=== PATIENT | female | born 1960 | race Caucasian/White ===

== ENCOUNTER 2017-09-21 14:48 | Outpatient (CLI) | payer BC ==
--- NOTE | 2017-09-21 18:35 | MRI ---
MRI LUMBAR SPINE NONCONTRAST: MRI THORACIC SPINE NONCONTRAST: HISTORY: Back pain. Leg weakness. FINDINGS: The conus medullaris has a normal appearance. At the partially visualized T9-T10 level, a posterior disk bulge is present with moderate stenosis of the central canal due to circumferential degenerative changes. T11-T12: Disk space narrowing. Large posterior disk herniation with superior extension. Flattening of the ventral aspect of the thecal sac and spinal cord by approximately 20%. No abnormal signal wi thin the cord. Moderate right and severe left foraminal stenosis. T11-T12, T12-L1, L1-L2: Osteophytosis. Central canal and neural foramen are patent. L2-L3: Disk space narrowing. Disk bulge and circumferential degenerative changes. Mild stenosis of the central canal. Moderate right and mild left foraminal stenosis. L3-L4: Osteophytosis. Central canal and neural foramen are patent. L4-L5: Osteophytosis. Central canal and neural foramen are patent. L5-S1: Central canal and neural foramen are patent. IMPRESSION: 1. Large posterior disk herniation with significant thecal sac and moderate spinal cord compression at the T10-T11 level. No evidence of myelomalacia. 2. Otherwise mild to moderate degenerative changes of the lumbar spine with central canal and forami nal stenoses, most pronounced at the L2-L3 level. POS: TAYLOR
== END 2017-09-21 14:49 | disposition home or self-care (01) ==
LOC: MRI 14:48
PROVIDERS: ATTEND Neurological Surgery
DX: M47.26 Other spondylosis with radiculopathy, lumbar region (principal); M48.061 Spinal stenosis, lumbar region without neurogenic claudication; M99.83 Other biomechanical lesions of lumbar region; M51.24 Other intervertebral disc displacement, thoracic region; G95.20 Unspecified cord compression
CPT/HCPCS: 72148

== ENCOUNTER 2017-10-07 15:30 | Outpatient (CLI) | payer BC ==
--- NOTE | 2017-10-07 16:52 | MRI ---
MR OF THORACIC SPINE WITHOUT CONTRAST: 10/07/17 INDICATION: Mid back pain with bilateral leg weakness. TECHNIQUE: Multiplanar and multisequence MR images were obtained of the thoracic spine without IV contrast. Comparisons are made with the thoracic spinal radiograph dated 10/31/15. FINDINGS: There is some mild increased T2 signal seen within the vertebral bodies of T6 through T10. There is s ome prominent fatty signal seen along the adjacent end plates at T6-T7 through T10-T11. There are mul tilevel disc bulges at these levels. Overall, the findings are suspicious for changes of Modic end pl ate degenerative change. No definite acute fracture is evident. At C7-T1, there is no appreciable central canal or neural foraminal narrowing. At T1-T2, there is no appreciable central canal or neural foraminal narrowing. At T2-T3, there is no appreciable central canal or neural foraminal narrowing. At T3-T4, there is no appreciable central canal or neural foraminal narrowing. At T4-T5, there is a small left paracentral protrusion but without appreciable central canal or neura l foraminal narrowing. At T5-T6, there is a small right paracentral protrusion without appreciable central canal or neural f oraminal narrowing. At T6-T7, there is a mild broad based disc bulge without appreciable cord contact. There is some mild effacement of the ventral subarachnoid space. At T7-T8, there is a mild broad based bulge causing mild effacement of ventral subarachnoid space wit hout definite cord compression. At T8-T9, there is a broad based disc bulge causing some mild ventral contact of the spinal cord with out definite cord flattening. At T9-T10, there is a mild broad based disc bulge without definite cord flattening. At T10-T11, there is a prominent left paracentral extrusion causing mild effacement of the ventral sp inal cord. The cephalad extrusion of disc material from this level measures approximately [address] craniocaudal dimensions. At T11-T12, there is no appreciable central canal or neural foraminal narrowing. At T12-L1, there is no appreciable central canal or neural foraminal narrowing. IMPRESSION: 1. Left paracentral cephalad extending disc extrusion at T10-T11 causing mild ventral effacement of the spinal cord without definite signal abnormality. 2. Multilevel spondylosis of the lumbar spine most pronounced at T6-T7 through T10-T11. 3. Prominent Modic end plate degenerative changes at T6-T7 through T10-T11. POS: TAYLOR
== END 2017-10-07 15:31 | disposition home or self-care (01) ==
LOC: TBSIIMAG 15:30
PROVIDERS: ATTEND Neurological Surgery
DX: M51.24 Other intervertebral disc displacement, thoracic region (principal); M47.894 Other spondylosis, thoracic region
CPT/HCPCS: 72146

== ENCOUNTER 2018-11-02 12:04 | Outpatient (CLI) | payer BC ==
--- NOTE | 2018-11-02 14:11 | MRI ---
MRI OF THE LUMBAR SPINE: DATE: 11/02/2018. COMPARISON: 09/22/2017. HISTORY: Lumbar radiculopathy. TECHNIQUE: Multiplanar multisequence MR imaging of the lumbar spine obtained without contrast. FINDINGS: The sagittal STIR imaging demonstrates no focal area of marrow edema within the lumbar spine to sugge st the presence of a lumbar spine fracture. There is partially visualized increased T2 signal within the superior aspect of the T11 vertebral body, new when compared to 10/07/2017 examination. Thi s could potentially represent edema on the basis of superior endplate fracture or could represent edema on the basis of degenerative change. On the basis of 5 lumbar-type vertebral bodies, the conus medullaris terminates at the L1-2 level. T12-L1: Mild bilateral facet hypertrophy. No significant central canal or neural foraminal stenosis. L1-2: There is disc desiccation and minimal disc bulge. There is mild bilateral facet hypertrophy. No significant central canal or neural foraminal stenosis. L2-3: There is disc space narrowing, disc desiccation, anterior osteophyte formation, degenerative en dplate change, and disc bulge, similar when compared to the prior examination. There is bilateral facet hypertrophy and hypertrophy of ligamentum flavum. There is moderate neural foraminal stenosis o n the right, similar when compared to the prior examination. No significant left neural foraminal stenosis there is mild slightly worsened central canal stenosis. L3-4: Mild bilateral facet hypertrophy. Intervertebral disc height and signal intensity within normal limits with no significant central canal or neural foraminal stenosis L4-5: Intervertebral disc height and signal intensity within normal limits. Mild bilateral facet hype rtrophy and hypertrophy of ligamentum flavum. No significant neural foraminal stenosis or central canal stenosis. L5-S1: Intervertebral disc height and signal intensity within normal limits with no significant centr al canal or neural foraminal stenosis. There is diverticulosis of the sigmoid colon and distal descending colon. Imaged retroperitoneal stru ctures demonstrate no acute findings. Multilevel degenerative change within the lumbar spine as detailed above, most prominent at L2-3. IMPRESSION: Increased T2/STIR signal noted within the superior aspect of the T11 vertebral body, only partially i hussein on this examination. This could be related to degenerative endplate change at T10-11 or superior endplate fracture of T11. Unfortunately, T10 is not visualized on this examination and the s uperior aspect of the T11 vertebral body is also not visualized on this study. Multilevel stable mild central canal stenosis. Transcribed Date/Time: 11/02/2018 3:40 PM
== END 2018-11-02 12:05 | disposition home or self-care (01) ==
LOC: SCSMRI 12:04
PROVIDERS: ATTEND Anesthesiology Pain Medicine
DX: M54.16 Radiculopathy, lumbar region (principal); M48.061 Spinal stenosis, lumbar region without neurogenic claudication
CPT/HCPCS: 72148

== ENCOUNTER 2019-09-11 09:30 | Outpatient (CLI) | payer BC ==
--- NOTE | 2019-09-11 17:38 | MRI ---
MRI RIGHT SHOULDER: Date: 09-11-2019 Provided Clinical History: Rotator cuff tear FINDINGS: There is a full thickness, full width retracted tear of the supraspinatus and infraspinatus tendons w ith retraction to the level of the acromioclavicular joint. There is associated edema within the infr aspinatus muscle suggesting an acute component. The components of the rotator cuff appear otherwise i ntact. Intact fibers of the long-head biceps tendon are not identified. There is a mild glenohumeral joint effusion. The glenoid labrum and glenohumeral articular cartilage appear unremarkable other than an ill-defined appearance to the region of the superior labrum at the biceps anchor region presumably on the basis of an acute disruption. Acromioclavicular joint osteoarthrosis is noted without significant mass effect upon the subjacent christian praspinatus. Rotator cuff muscular volume appears preserved. No focal concerning regional marrow or m uscular signal abnormality apparent. IMPRESSION: 1. Full thickness, full width retracted tearing of the supraspinatus and infraspinatus tendons with a ssociated muscular edema within the infraspinatus suggesting an acute component to the tear. 2. Disruption of the long-head biceps tendon at the biceps anchor with associated irregularity of the superior labrum. 3. Moderate glenohumeral joint effusion. POS: BRIAN
== END 2019-09-11 09:31 | disposition home or self-care (01) ==
LOC: SCSMRI 09:30
PROVIDERS: ATTEND Orthopaedic Surgery
DX: S46.011A Strain of muscle(s) and tendon(s) of the rotator cuff of right shoulder, initial encounter (principal); M75.121 Complete rotator cuff tear or rupture of right shoulder, not specified as traumatic; M25.411 Effusion, right shoulder

== ENCOUNTER 2021-01-30 11:01 | Outpatient (CLI) | payer BC ==
[2021-01-30 13:50] LABS: #Basophils 0.1 10x3/uL (0.0-0.2); #Eosinphils 0.3 10x3/uL (0.0-0.5); #Monocytes 0.7 10x3/uL (0.0-1.1); #Neutrophils 5.8 10x3/uL (1.5-8.4); %Basophils 1.4 % (0.0-2.0); %Eosinophils 2.8 % (0.0-6.0); %Lymphocytes 21.7 % (18.0-47.0); %Monocytes 7.8 % (0.0-10.0); %Neutrophils 65.7 % (40.0-75.0); Hemoglobin 13.8 g/dL (12.0-15.5); Mean Corpuscular HGB CONC 32.2 g/dL (32.0-36.0); Mean Corpuscular Hemoglobin 30.7 pg (27.0-33.0); Mean Corpuscular Volume 95.3 fl (81.6-98.3); Mean Platelet Volume 10.2 fl (7.4-10.4); Platelet Count 351 10x3/uL (150-450); White Blood Cell (WBC) Count 8.9 10x3/uL (3.5-10.5)
[2021-01-30 14:12] LABS: Anion Gap 13 mmol/L (10-20); BUN (Urea Nitrogen) 9 mg/dL (9.8-20.1); Calc. Creatinine Clearance 0 mL/min (70-130); Carbon Dioxide 29 mmol/L (22-29); Chloride 99 mmol/L (98-107); Glucose 98 mg/dL (70-105); Potassium 4.4 mmol/L (3.5-5.1); Sodium 137 mmol/L (136-145)
[2021-01-30 22:43] LABS: SARS-CoV-2 PCR by NAA Not Detected (NotDetected)
== END 2021-01-30 11:02 | disposition home or self-care (01) ==
LOC: LABBT 11:01
PROVIDERS: ATTEND Orthopaedic Surgery
DX: Z01.818 Encounter for other preprocedural examination (principal); Z20.822 Contact with and (suspected) exposure to COVID-19
CPT/HCPCS: 80048; 85025; 93005; 93010; U0003; U0005

== ENCOUNTER 2021-02-04 05:51 | Observation (INO) | payer BC ==
[2021-01-29 11:28] VITALS: BMI 37.6
[2021-02-04] MEDS ORDERED: Tranexamic Acid 1,000 MG/10 ML VIAL ONE (06:08)
[2021-02-04] MEDS ORDERED: Levofloxacin 500 mg/D5W 100 ml Premix Bag ONE (06:08)
[2021-02-04] MEDS ORDERED: Sodium Chloride 0.9% 100 ML ONE (06:08)
[2021-02-04] MEDS ORDERED: Vancomycin 1.5 GRAM/300 ML BAG 1.5 GM in Premix Bag 1 BAG IVPB SCH (06:15)
[2021-02-04] MEDS ORDERED: Midazolam HCl 2 mg/2 ml Vial ONE ×2 (06:39→06:40)
[2021-02-04] MEDS ORDERED: Fentanyl 100 MCG/2 ML VIAL ONE ×5 (06:40→09:48)
[2021-02-04] MEDS ORDERED: HYDROcodone/Acetaminophen 10/325 mg Tablet PO PRN ×2 (07:01)
[2021-02-04] MEDS ORDERED: Albuterol Sulfate 1.25 MG/3 ML NEB NEB PRN (07:04)
[2021-02-04] MEDS ORDERED: Diazepam 5 MG TAB PO PRN (07:04)
[2021-02-04] MEDS ORDERED: Non-Formulary Item 1 EACH (Albuterol Sulfate [Proair Hfa] 108 Hfa.Aer.Ad) INH PRN (07:04)
[2021-02-04] MEDS ORDERED: predniSONE 5 MG TAB PO PRN (07:04)
[2021-02-04] MEDS ORDERED: Bupivacaine PF 0.5% 30 ML VIAL ONE (07:12)
[2021-02-04] MEDS ORDERED: Vancomycin HCl 1.5 GM in Sodium Chloride 0.9% 250 ML 300 ML IVPB SCH (07:15)
[2021-02-04] MEDS ORDERED: Dexamethasone 20 MG/5 ML VIAL ONE (07:22)
[2021-02-04] MEDS ORDERED: Ketorolac Tromethamine 30 MG/ML VIAL ONE (07:22)
[2021-02-04] MEDS ORDERED: Rocuronium Bromide 10 MG/ML (10ML VIAL) ONE (07:22)
[2021-02-04] MEDS ORDERED: ePHEDrine 50 MG/ML VIAL ONE (07:22)
[2021-02-04] MEDS ORDERED: Lidocaine 1% PF 5 ML VIAL ONE (07:22)
[2021-02-04] MEDS ORDERED: PROPOFOL 200 MG/20 ML VIAL ONE (07:22)
[2021-02-04] MEDS ORDERED: Ondansetron PF 4 MG/2 ML Vial ONE (07:22)
[2021-02-04] MEDS ORDERED: Glycopyrrolate 0.2 MG/ML 5 ML SYRINGE ONE (07:22)
[2021-02-04] MEDS ORDERED: Phenylephrine 10 MG/ML VIAL ONE (07:22)
[2021-02-04] MEDS ORDERED: Albuterol Sulfate HFA (OR ONLY) INH PRN (07:54)
[2021-02-04] MEDS ORDERED: Meperidine HCl/PF 25 MG/ML VIAL SLOW IVP PRN (08:20)
[2021-02-04] MEDS ORDERED: Promethazine HCl 25 MG/ML VIAL IM PRN ×2 (08:20)
[2021-02-04] MEDS ORDERED: Naloxone HCl 0.4 mg/ml Vial IV PRN (08:20)
[2021-02-04] MEDS ORDERED: Zolpidem Tartrate 5 MG TAB PO PRN (08:20)
[2021-02-04] MEDS ORDERED: HYDROmorphone 2 MG/ML VIAL SLOW IVP PRN (08:20)
[2021-02-04] MEDS ORDERED: diphenhydrAMINE 25 MG CAP PO PRN (08:20)
[2021-02-04] MEDS ORDERED: fentaNYL Citrate/PF 2,000 MCG in Sodium Chloride 0.9% 60 ML IV PRN (08:20)
[2021-02-04] MEDS ORDERED: diphenhydrAMINE 50 MG/ML VIAL IM PRN (08:20)
[2021-02-04] MEDS ORDERED: Ondansetron PF 4 MG/2 ML Vial IVP PRN (08:20)
[2021-02-04] MEDS ORDERED: Promethazine HCl 25 MG/ML VIAL IVPB PRN (08:20)
[2021-02-04] MEDS ORDERED: diphenhydrAMINE 50 MG/ML VIAL IVP PRN (08:20)
[2021-02-04] MEDS ORDERED: PCA Communication Order-Pharmacy FS SCH (08:30)
[2021-02-04] MEDS ORDERED: SUGAMMADEX SODIUM 200 MG/2 ML VIAL ONE (08:31)
[2021-02-04] MEDS ORDERED: DOXYCYCLINE HYCLATE 20 MG PO SCH (09:00)
[2021-02-04] MEDS ORDERED: PREGABALIN PO SCH (09:00)
[2021-02-04] MEDS ORDERED: DOXYCYCLINE HYCLATE PO SCH (09:00)
[2021-02-04] MEDS ORDERED: LEFLUNOMIDE PO SCH (09:00)
[2021-02-04] MEDS ORDERED: Bisoprolol Fumarate/HCTZ 10 mg/6.25 mg Tablet PO SCH (09:00)
[2021-02-04] MEDS ORDERED: Non-Formulary Item 1 EACH (Fluticasone/Salmeterol [Advair Diskus 250/50] 1 EACH Blst.W.De INH SCH (09:00)
[2021-02-04] MEDS ORDERED: HYDROmorphone 0.5 MG/0.5 ML SYRINGE ONE (09:48)
[2021-02-04] MEDS: Leflunomide 10 mg Tablet PO SCH (11:49)
[2021-02-04] MEDS: Bisoprolol Fumarate/HCTZ 10 mg/6.25 mg Tablet PO SCH (11:49)
[2021-02-04] MEDS: Pregabalin 75 MG CAP PO SCH ×2 (11:49→20:53)
[2021-02-04] MEDS: Folic Acid 1 MG TAB PO SCH ×2 (11:49→20:53)
[2021-02-04] MEDS: Aspirin 325 MG TAB PO SCH ×2 (11:49→20:53)
[2021-02-04] MEDS: Hydroxychloroquine Sulfate 200 MG TAB PO SCH (11:49)
[2021-02-04] MEDS: DULoxetine 30 MG CAP PO SCH ×2 (11:49→20:54)
[2021-02-04] MEDS: sulfaSALAzine 500 MG TAB PO SCH ×2 (11:50→20:54)
[2021-02-04] MEDS: Ketorolac Tromethamine 30 MG/ML VIAL IVP SCH ×3 (12:22→23:50)
[2021-02-04] MEDS: Sodium Chloride 0.9% 1,000 ML IV SCH ×2 (12:22→20:54)
[2021-02-04] MEDS: Albuterol Sulfate 1.25 MG/3 ML NEB NEB PRN (15:55)
[2021-02-04] MEDS: Mometasone 200 MCG/Formoterol 5 MCG 120 PUFF INHALER INH SCH (18:53)
[2021-02-05] MEDS: Sodium Chloride 0.9% 1,000 ML IV SCH ×3 (03:45→21:49)
[2021-02-05] MEDS: Ketorolac Tromethamine 30 MG/ML VIAL IVP SCH ×2 (05:17→11:42)
[2021-02-05] MEDS ORDERED: Vancomycin HCl 1.5 GM in Sodium Chloride 0.9% 250 ML 300 ML IVPB SCH (06:00)
[2021-02-05] MEDS: Mometasone 200 MCG/Formoterol 5 MCG 120 PUFF INHALER INH SCH ×2 (07:29→18:47)
[2021-02-05] MEDS: Leflunomide 10 mg Tablet PO SCH (09:07)
[2021-02-05] MEDS: DULoxetine 30 MG CAP PO SCH ×2 (09:08→20:39)
[2021-02-05] MEDS: sulfaSALAzine 500 MG TAB PO SCH ×2 (09:08→20:40)
[2021-02-05] MEDS: Pregabalin 75 MG CAP PO SCH ×2 (09:08→20:39)
[2021-02-05] MEDS: Bisoprolol Fumarate/HCTZ 10 mg/6.25 mg Tablet PO SCH (09:09)
[2021-02-05] MEDS: Folic Acid 1 MG TAB PO SCH ×2 (09:09→20:39)
[2021-02-05] MEDS: Aspirin 325 MG TAB PO SCH ×2 (09:09→20:39)
[2021-02-05] MEDS ORDERED: Albuterol 200 PUFF (6.7GM INHALER) INH PRN (09:48)
[2021-02-05] MEDS: Albuterol Sulfate 1.25 MG/3 ML NEB NEB PRN (10:44)
[2021-02-05] MEDS: Hydroxychloroquine Sulfate 200 MG TAB PO SCH (18:53)
[2021-02-06] MEDS: Aspirin 325 MG TAB PO SCH (08:01)
[2021-02-06] MEDS: Pregabalin 75 MG CAP PO SCH (08:01)
[2021-02-06] MEDS: Hydroxychloroquine Sulfate 200 MG TAB PO SCH (08:02)
[2021-02-06] MEDS: Bisoprolol Fumarate/HCTZ 10 mg/6.25 mg Tablet PO SCH (08:02)
[2021-02-06] MEDS: DULoxetine 30 MG CAP PO SCH (08:02)
[2021-02-06] MEDS: Leflunomide 10 mg Tablet PO SCH (08:02)
[2021-02-06] MEDS: sulfaSALAzine 500 MG TAB PO SCH (08:02)
[2021-02-06] MEDS: Folic Acid 1 MG TAB PO SCH (08:02)
[2021-02-06 08:06] VITALS: BP 126/83; TEMP 98.5
[2021-02-06] MEDS: Mometasone 200 MCG/Formoterol 5 MCG 120 PUFF INHALER INH SCH (08:23)
[2021-02-06] MEDS ORDERED: HYDROcodone/Acetaminophen 10/325 mg Tablet PO PRN (10:01)
== END 2021-02-06 10:25 | disposition home or self-care (01) ==
LOC: SDC 05:51 → SURG A 07:01
PROVIDERS: ADMIT Orthopaedic Surgery; ATTEND Orthopaedic Surgery
PROC: 0RRJ00Z Replacement of Right Shoulder Joint with Reverse Ball and Socket Synthetic Substitute, Open Approach (ICD-10-PCS; principal; 2021-02-04)
DX: M75.101 Unspecified rotator cuff tear or rupture of right shoulder, not specified as traumatic (principal); M06.9 Rheumatoid arthritis, unspecified; I10 Essential (primary) hypertension; D68.61 Antiphospholipid syndrome; F17.200 Nicotine dependence, unspecified, uncomplicated; Z86.15 Personal history of latent tuberculosis infection; Z79.2 Long term (current) use of antibiotics; Z79.82 Long term (current) use of aspirin; Z79.899 Other long term (current) drug therapy; Z88.0 Allergy status to penicillin; Z88.8 Allergy status to other drugs, medicaments and biological substances; Z88.7 Allergy status to serum and vaccine; Z98.890 Other specified postprocedural states
CPT/HCPCS: 94640; 96374; 96375; 96376; C1713; C1776; C1889; G0378; J1100; J1170; J1885; J1956; J2250; J2370; J2405; J2704; J3010; J3370; J3490; J7050; J7620; S0020

== ENCOUNTER 2021-02-07 03:33 | Observation (INO) | payer BC ==
[2021-02-07] MEDS ORDERED: Ondansetron ODT 8 MG TAB ONE (04:18)
[2021-02-07] MEDS ORDERED: Morphine 4 MG/ML VIAL ONE ×2 (04:18→15:54)
[2021-02-07 05:57] LABS: #Basophils 0.1 thou/uL (0.0-0.2); #Eosinphils 0.1 thou/uL (0.0-0.7); #Lymphocytes 1.2 thou/uL (1.20-3.40); #Monocytes 0.8 thou/uL (0.11-0.59); #Neutrophils 7.3 thou/uL (1.40-6.50); %Basophils 0.7 % (0.0-1.0); %Eosinophils 0.7 % (0.0-10.0); %Lymphocytes 12.3 % (21.0-51.0); %Monocytes 8.9 % (0.0-10.0); %Neutrophils 77.4 % (42.0-75.0); Hemoglobin 12.6 g/dL (12.0-16.0); Mean Corpuscular HGB CONC 34.3 g/dL (32.0-36.0); Mean Corpuscular Hemoglobin 33.5 pg (27.0-31.0); Mean Corpuscular Volume 97.6 fL (78.0-98.0); Mean Platelet Volume 6.9 fL (7.4-10.4); Platelet Count 282 thou/uL (130-400); RBC Distribution Width 12.6 % (11.5-14.5); Red Blood Cell (RBC) Count 3.76 mill/uL (4.20-5.40); White Blood Cell (WBC) Count 9.4 thou/uL (4.8-10.8)
[2021-02-07 06:18] LABS: ALT (SGPT) 9 U/L (8-55); AST (SGOT) 25 U/L (5-34); Albumin 3.4 g/dL (3.5-5.0); Alkaline Phosphatase 68 U/L (40-110); Anion Gap 9 mmol/L (10-20); BUN (Urea Nitrogen) 7 mg/dL (9.8-20.1); Bilirubin, Total 0.4 mg/dL (0.2-1.2); Calc. Creatinine Clearance 0 mL/min (70-130); Carbon Dioxide 30 mmol/L (22-29); Chloride 102 mmol/L (98-107); Globulin 2.4 g/dL (2.4-3.5); Glucose 111 mg/dL (70-105); Potassium 3.4 mmol/L (3.5-5.1); Protein, Total 5.8 g/dL (6.0-8.3); Sodium 138 mmol/L (136-145)
[2021-02-07] MEDS ORDERED: Aspirin 325 MG TAB ONE (06:38)
[2021-02-07 06:41] LABS: CKMB 5.7 ng/mL (0-6.6)
[2021-02-07 09:02] LABS: Troponin I 0.165 ng/mL (< 0.028)
[2021-02-07] MEDS ORDERED: Iopamidol-370 76% 500 ML 1 ML ONE (11:17)
[2021-02-07 11:43] LABS: SARS-CoV-2 NAA Rapid Test Not Detected (NotDetected)
[2021-02-07 12:08] LABS: Troponin I 0.148 ng/mL (< 0.028)
[2021-02-07] MEDS ORDERED: Nitroglycerin 0.4 MG TAB (25 Tab Bottle) SL PRN (12:26)
[2021-02-07] MEDS ORDERED: Albuterol Sulfate 1.25 MG/3 ML NEB NEB PRN (12:34)
[2021-02-07] MEDS ORDERED: Diazepam 5 MG TAB PO PRN (12:34)
[2021-02-07] MEDS ORDERED: Acetaminophen 325 MG TAB PO PRN (12:41)
[2021-02-07] MEDS ORDERED: Electrolyte Replacement Protocol 1 EACH FS SCH (12:45)
[2021-02-07] MEDS ORDERED: Potassium Chloride 20 MEQ TAB PO SCH (13:15)
[2021-02-07] MEDS ORDERED: Electrolyte Replacement Protocol FS PRN (13:15)
[2021-02-07] MEDS ORDERED: Enoxaparin Sodium 80 MG/0.8 ML SYRINGE SC SCH (13:15)
[2021-02-07 14:02] LABS: Cardiac Risk 3.5 (Less than 4.5)
[2021-02-07] MEDS ORDERED: Enoxaparin Sodium 80 MG/0.8 ML SYRINGE ONE (15:56)
[2021-02-07] MEDS ORDERED: Potassium Chloride 20 MEQ TAB ONE (15:56)
[2021-02-07] MEDS ORDERED: Ondansetron ODT 4 MG TAB ONE (15:56)
[2021-02-07] MEDS: Morphine 4 MG/ML VIAL SLOW IVP PRN (16:42)
[2021-02-07] MEDS: Ondansetron ODT 4 MG TAB PO PRN (16:45)
[2021-02-07 18:53] VITALS: BMI 40.3
[2021-02-07] MEDS: Mometasone 200 MCG/Formoterol 5 MCG 120 PUFF INHALER INH SCH (19:00)
[2021-02-07 19:47] LABS: Troponin I 0.141 ng/mL (< 0.028)
[2021-02-07] MEDS: sulfaSALAzine 500 MG TAB PO SCH (20:26)
[2021-02-07] MEDS: Enoxaparin Sodium 80 MG/0.8 ML SYRINGE SC SCH (20:26)
[2021-02-07] MEDS: Aspirin 325 MG TAB PO SCH (20:26)
[2021-02-07] MEDS: Pregabalin 75 MG CAP PO SCH (20:27)
[2021-02-07] MEDS: Folic Acid 1 MG TAB PO SCH (20:27)
[2021-02-07] MEDS: DULoxetine 30 MG CAP PO SCH (20:27)
[2021-02-07] MEDS: Nicotine 14 MG PATCH TD SCH (20:31)
[2021-02-07] MEDS ORDERED: DOXYCYCLINE HYCLATE 20 MG PO SCH (21:00)
[2021-02-08 05:19] LABS: #Eosinphils 0.1 thou/uL (0.0-0.7); #Lymphocytes 1.5 thou/uL (1.20-3.40); #Monocytes 0.9 thou/uL (0.11-0.59); #Neutrophils 5.5 thou/uL (1.40-6.50); %Basophils 0.5 % (0.0-1.0); %Eosinophils 1.7 % (0.0-10.0); %Monocytes 11.1 % (0.0-10.0); %Neutrophils 67.8 % (42.0-75.0); Hemoglobin 12.1 g/dL (12.0-16.0); Mean Corpuscular Hemoglobin 31.5 pg (27.0-31.0); Mean Corpuscular Volume 98.6 fL (78.0-98.0); Mean Platelet Volume 7.1 fL (7.4-10.4); Platelet Count 279 thou/uL (130-400); RBC Distribution Width 12.5 % (11.5-14.5); Red Blood Cell (RBC) Count 3.83 mill/uL (4.20-5.40); White Blood Cell (WBC) Count 8.1 thou/uL (4.8-10.8)
[2021-02-08 05:21] LABS: Anion Gap 14 mmol/L (10-20); BUN (Urea Nitrogen) 4 mg/dL (9.8-20.1); Calc. Creatinine Clearance 156 mL/min (70-130); Calcium 8.8 mg/dL (7.8-10.44); Carbon Dioxide 26 mmol/L (22-29); Chloride 102 mmol/L (98-107); Glucose 80 mg/dL (70-105); Magnesium 1.9 mg/dL (1.6-2.6); Potassium 3.7 mmol/L (3.5-5.1); Sodium 138 mmol/L (136-145)
[2021-02-08] MEDS ORDERED: Magnesium 2 GM/50 ML 2 GM in Premix Bag 1 BAG IVPB SCH (06:00)
[2021-02-08] MEDS: Morphine 4 MG/ML VIAL SLOW IVP PRN ×2 (07:11→14:38)
[2021-02-08] MEDS: Ondansetron ODT 4 MG TAB PO PRN ×2 (07:12→17:04)
[2021-02-08] MEDS: Mometasone 200 MCG/Formoterol 5 MCG 120 PUFF INHALER INH SCH ×2 (09:31→23:57)
[2021-02-08] MEDS: Folic Acid 1 MG TAB PO SCH ×2 (10:36→22:03)
[2021-02-08] MEDS: Pregabalin 75 MG CAP PO SCH ×2 (10:36→22:04)
[2021-02-08] MEDS: sulfaSALAzine 500 MG TAB PO SCH ×2 (10:37→22:05)
[2021-02-08] MEDS: DULoxetine 30 MG CAP PO SCH ×2 (10:37→22:03)
[2021-02-08] MEDS: Hydroxychloroquine Sulfate 200 MG TAB PO SCH (10:37)
[2021-02-08] MEDS: Bisoprolol Fumarate/HCTZ 10 mg/6.25 mg Tablet PO SCH (10:37)
[2021-02-08] MEDS: Leflunomide 10 mg Tablet PO SCH (10:38)
[2021-02-08] MEDS: Enoxaparin Sodium 80 MG/0.8 ML SYRINGE SC SCH (10:39)
[2021-02-08] MEDS: Aspirin 325 MG TAB PO SCH ×2 (10:41→22:03)
[2021-02-08] MEDS: HYDROcodone/Acetaminophen 10/325 mg Tablet PO PRN ×2 (17:04→22:04)
[2021-02-08] MEDS: Nicotine 14 MG PATCH TD SCH (17:07)
[2021-02-08] MEDS ORDERED: Promethazine HCl 25 MG in Sodium Chloride 0.9% 50 ML IVPB PRN (18:29)
[2021-02-08] MEDS ORDERED: Promethazine HCl 25 MG/ML VIAL IM PRN (21:53)
[2021-02-09 05:20] LABS: Hemoglobin 12.2 g/dL (12.0-16.0); Mean Corpuscular HGB CONC 32.4 g/dL (32.0-36.0); Mean Corpuscular Hemoglobin 32.3 pg (27.0-31.0); Mean Corpuscular Volume 99.8 fL (78.0-98.0); Mean Platelet Volume 7.6 fL (7.4-10.4); Platelet Count 236 thou/uL (130-400); RBC Distribution Width 12.8 % (11.5-14.5); Red Blood Cell (RBC) Count 3.77 mill/uL (4.20-5.40); White Blood Cell (WBC) Count 6.9 thou/uL (4.8-10.8)
[2021-02-09 05:37] LABS: Band 2 % (5-11); Eosinophils 3 % (0-10); Lymphocytes 26 % (21-51); MDiff Complete? YES; Monocytes 9 % (0-10); Neutrophil 60 % (42-75)
[2021-02-09] MEDS: Promethazine 25 MG TAB PO PRN ×2 (05:43→13:41)
[2021-02-09] MEDS: HYDROcodone/Acetaminophen 10/325 mg Tablet PO PRN ×2 (05:43→13:41)
[2021-02-09 05:54] LABS: Calcium 5.9 mg/dL (7.8-10.44); Chloride 103 mmol/L (98-107); Potassium 4.3 mmol/L (3.5-5.1); Sodium 136 mmol/L (136-145)
[2021-02-09 06:22] LABS: Anion Gap 18 mmol/L (10-20); BUN (Urea Nitrogen) 5 mg/dL (9.8-20.1); Calc. Creatinine Clearance 145 mL/min (70-130); Carbon Dioxide 20 mmol/L (22-29); Glucose 85 mg/dL (70-105)
[2021-02-09] MEDS: Mometasone 200 MCG/Formoterol 5 MCG 120 PUFF INHALER INH SCH (08:21)
[2021-02-09] MEDS ORDERED: Enoxaparin Sodium 40 MG/0.4 ML SYRINGE SC SCH (09:00)
[2021-02-09] MEDS: Pregabalin 75 MG CAP PO SCH (09:15)
[2021-02-09] MEDS: DULoxetine 30 MG CAP PO SCH (09:16)
[2021-02-09] MEDS: Folic Acid 1 MG TAB PO SCH (09:16)
[2021-02-09] MEDS: Bisoprolol Fumarate/HCTZ 10 mg/6.25 mg Tablet PO SCH (09:16)
[2021-02-09] MEDS: Leflunomide 10 mg Tablet PO SCH (09:17)
[2021-02-09] MEDS: Aspirin 325 MG TAB PO SCH (09:17)
[2021-02-09] MEDS: Hydroxychloroquine Sulfate 200 MG TAB PO SCH (09:18)
[2021-02-09] MEDS: sulfaSALAzine 500 MG TAB PO SCH (09:18)
[2021-02-09 16:57] VITALS: BP 107/67; TEMP 99.3
[2021-02-10] MEDS ORDERED: Potassium Chloride 10 MEQ TAB PO SCH (08:00)
[2021-02-10] MEDS ORDERED: Bisoprolol Fumarate 5 MG TAB PO SCH (09:00)
[2021-02-10] MEDS ORDERED: Furosemide 20 MG TAB PO SCH (09:00)
== END 2021-02-09 17:40 | disposition home or self-care (01) ==
LOC: ERS 03:33 → ERHOLD 06:47 → 2SW 18:07 → 2NO 22:19
PROVIDERS: ADMIT Internal Medicine; ATTEND Internal Medicine
DX: J18.9 Pneumonia, unspecified organism (principal); I21.4 Non-ST elevation (NSTEMI) myocardial infarction; M25.511 Pain in right shoulder; R07.9 Chest pain, unspecified; I10 Essential (primary) hypertension; M06.9 Rheumatoid arthritis, unspecified; F17.210 Nicotine dependence, cigarettes, uncomplicated; D68.61 Antiphospholipid syndrome; Z20.822 Contact with and (suspected) exposure to COVID-19; J44.9 Chronic obstructive pulmonary disease, unspecified; R11.0 Nausea; E87.6 Hypokalemia; Z79.82 Long term (current) use of aspirin; Z79.899 Other long term (current) drug therapy; Z88.0 Allergy status to penicillin; Z88.7 Allergy status to serum and vaccine; Z88.8 Allergy status to other drugs, medicaments and biological substances
CPT/HCPCS: 36415; 71045; 71275; 80048; 80053; 80061; 82553; 83735; 83880; 84484; 85025; 85379; 93005; 94760; 96372; 96374; 96375; 96376; G0378; J1650; J1956; J2270; J2550; J3475; Q0162; Q0169; Q9967; U0002

== ENCOUNTER 2021-10-29 11:38 | Outpatient (CLI) | payer BC | END 2021-10-29 11:39 | disposition home or self-care (01) | LOC: SCSMRI 11:38 | PROVIDERS: ATTEND Anesthesiology Pain Medicine | DX: M79.671 Pain in right foot (principal); M47.26 Other spondylosis with radiculopathy, lumbar region; M77.32 Calcaneal spur, left foot; M19.071 Primary osteoarthritis, right ankle and foot | CPT/HCPCS: 72110; 72148 ==

== ENCOUNTER 2024-10-19 10:53 | Outpatient (CLI) | payer BC | END 2024-10-19 10:54 | disposition home or self-care (01) | LOC: SCSBT 10:53 | PROVIDERS: ATTEND Internal Medicine Rheumatology | DX: Z78.0 Asymptomatic menopausal state (principal); M85.851 Other specified disorders of bone density and structure, right thigh; M85.852 Other specified disorders of bone density and structure, left thigh | CPT/HCPCS: 77080 ==

== ENCOUNTER 2024-10-19 10:56 | Outpatient (CLI) | payer BC | END 2024-10-19 10:57 | disposition home or self-care (01) | LOC: SCSMRI 10:56 | PROVIDERS: ATTEND Family Medicine | DX: R27.0 Ataxia, unspecified (principal); M48.061 Spinal stenosis, lumbar region without neurogenic claudication; M48.07 Spinal stenosis, lumbosacral region | CPT/HCPCS: 72148 ==

== ENCOUNTER 2024-10-19 11:02 | Outpatient (CLI) | payer BC | END 2024-10-19 11:03 | disposition home or self-care (01) | LOC: SCSRAD 11:02 | PROVIDERS: ATTEND Internal Medicine Rheumatology | DX: M51.360 Other intervertebral disc degeneration, lumbar region with discogenic back pain only (principal) | CPT/HCPCS: 72100 ==

== ENCOUNTER 2024-12-21 10:36 | Outpatient (CLI) | payer BC | END 2024-12-21 10:37 | disposition home or self-care (01) | LOC: SCSMRI 10:36 | PROVIDERS: ATTEND Orthopaedic Surgery | DX: M48.02 Spinal stenosis, cervical region (principal); G95.9 Disease of spinal cord, unspecified; M47.814 Spondylosis without myelopathy or radiculopathy, thoracic region; M48.04 Spinal stenosis, thoracic region | CPT/HCPCS: 72141; 72146 ==